=== PATIENT | male | born 1955 | race Caucasian/White ===

== ENCOUNTER → 2019-08-26 17:19 | Outpatient (CLI) | payer OTHER, SELFPAY ==
--- NOTE | ~2019-08-26 | MR_ITS ---
EXAMINATION: MR knee LT wo con DATE: 08/26/2019 18:38 INDICATION: Left knee pain and swelling. TECHNIQUE: Magnetic resonance imaging (MRI) of the left knee was performed without intravenous contra st. Sequences included axial PD-weighted FS FSE, coronal PD-weighted FSE and PD-weighted FS FSE, sagi ttal PD-weighted FSE, and sagittal T2-weighted FS FSE. COMPARISON: None. FINDINGS: Medial compartment: There is an upper surface horizontal tear involving posterior horn of medial meniscus. There is shall ow partial-thickness cartilage loss of tibial condyle and femoral condyle. There is deep partial thic kness cartilage loss of femoral condyle involving the central articular surface with mild subchondral edema-like marrow signal intensity. Marginal osteophytes are noted. Lateral compartment: There is an undersurface horizontal tear of posterior root of lateral meniscus. There is shallow part ial-thickness cartilage loss of tibial condyle and femoral condyle. There is mild subchondral edema-l li marrow signal intensity of femoral condyle laterally. Marginal osteophytes are noted. Patellofemoral compartment: There is full-thickness cartilage loss of patellar medial facet with moderate subchondral edema-like marrow signal intensity and partial thickness cartilage loss of patellar median ridge and lateral fac et. There is full-thickness cartilage loss of medial trochlea with mild subchondral edema-like marrow signal intensity and partial thickness cartilage loss of central trochlea. Marginal osteophytes are noted. Ligaments and tendons: Anterior cruciate ligament is intact. There is at least a partial tear of posterior cruciate ligament . There are changes of prior sprains of medial collateral ligament and fibular collateral ligament ch aracterized by thickening and increased signal intensity proximally. There is mild patellar tendinopa thy. Fluid: There is a small knee joint effusion. There is trace fluid in a Crowley's cyst. There is mild superfici al infrapatellar bursitis. IMPRESSION: 1. Severe chondrosis of patellofemoral compartment, moderate chondrosis of medial compartment, and mi ld chondrosis of lateral compartment. 2. Tears of medial and lateral menisci. 3. At least partial tear of posterior cruciate ligament. 4. Small knee joint effusion. Reviewed, dictated and finalized at location A. ING MACHINE OPERATOR IMPRESSION: 1. Severe chondrosis of patellofemoral compartment, moderate chondrosis of medi al compartment, and mild chondrosis of lateral compartment. 2. Tears of medial and lateral menisci. 3. At least partial tear of posterior cruciate ligament. 4. Small knee joint effusion.
== END ==
DX: S83.242A Other tear of medial meniscus, current injury, left knee, initial encounter (principal); M25.462 Effusion, left knee
CPT/HCPCS: 73721